=== PATIENT | male | born 1980 | race Caucasian/White ===

== ENCOUNTER 2019-12-11 14:28 | Emergency (ER) | payer OTHER, SELFPAY ==
--- NOTE | ~2019-12-11 | XR_ITS ---
EXAMINATION: XR foot RT min 3V DATE: 12/11/2019 15:12 INDICATION: Right heel pain. TECHNIQUE: 4 views of right foot were obtained. COMPARISON: None. FINDINGS: There is a comminuted, joint-depression fracture of calcaneus with extension of a fracture line to the calcaneocuboid joint. Boehler's angle is decreased. 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 There is an enthesophyte at posterior aspect of calcaneal tuberosity. IMPRESSION: 1. Comminuted, joint-depression fracture of calcaneus. Reviewed, dictated and finalized at location A. ZER
--- NOTE | ~2019-12-11 | XR_ITS ---
EXAMINATION: XR heel RT min 2V DATE: 12/11/2019 15:13 INDICATION: Right calcaneus injury. TECHNIQUE: 2 views of right calcaneus were obtained. COMPARISON: None. FINDINGS: There is a comminuted joint-depression fracture of calcaneus with decreased Boehler's angle . There is mild osteoarthritis of talonavicular joint. There is an enthesophyte at posterior aspect o f calcaneal tuberosity. IMPRESSION: 1. Comminuted, joint-depression fracture of calcaneus. Reviewed, dictated and finalized at location A. [employer]
[2019-12-11 14:45] VITALS: BP 169/85; PULSE 80; RESP 20; TEMP 36.7; O2SAT 98
--- NOTE | 2019-12-11 15:21 | ED.LOWEXIN ---
HPI - Extremity Injury (Lower) General Chief Complaint: Extremity Injury, Lower Stated Complaint: right foot injury Time Seen by Provider: 12/11/19 15:21 Source: patient, family and RN notes reviewed History of Present Illness HPI Narrative: Patient is a 39-year-old male that presents the urgent care with his father with complaints of a fall. Patient states he slipped off a ladder and fell approximately 10 to 12 feet onto his right heel. Patient states that he came straight to the facility and has not been treated for pain. Patient is slightly diaphoretic with obvious deformity to the right heel. No other acute complaints or injuries. Denies any loss of consciousness or hitting his head. Patient aware the plan of care. Related Data Home Medications Medication Instructions Recorded Confirmed No Home Medications 12/11/19 12/11/19 Allergies Allergy/AdvReac Type Severity Reaction Status Date / Time No Known Allergies Allergy Verified 12/11/19 15:28 Review of Systems Review of Systems: Narrative: CONSTITUTIONAL: Denies fever, chills, or sweats. EYES: Denies visual changes, redness, or discharge. ENT: Denies rhinorrhea, congestion, sore throat, or otalgia. CARDIOVASCULAR: Denies chest pain, palpitations, or edema. RESPIRATORY: Denies cough or dyspnea. GASTROINTESTINAL: Denies abdominal pain, nausea, vomiting, or diarrhea. GENITOURINARY: Denies dysuria or hematuria. SKIN: Denies rash or itching. MUSCULOSKELETAL: Right heel pain/swelling NEUROLOGIC: Denies headache, numbness, or weakness. All other systems reviewed are negative, except as documented in HPI. PMFSH Comments At the time of my signature, I reviewed and agree with the nursing past medical, surgical, social, and family history. There is no relevant family history pertinent to the patient complaint. Exam Narrative: Exam Narrative: GENERAL: This is a well-nourished, well-developed patient, slightly diaphoretic HEAD: normocephalic, atraumatic. EYES: PERRL. Sclera clear/white. Vision is grossly intact. EARS: External ears normal NOSE: External nose normal with no obvious nasal discharge THROAT: Mucous membranes moist NECK: Neck supple CARDIOVASCULAR: Regular rate and rhythm without murmurs, gallops, or rubs. RESPIRATORY: Clear to auscultation. Breath sounds equal bilaterally. No wheezes, rales, or rhonchi. SKIN: warm, intact with no suspicious lesions or rash, good texture and turgor. NEURO: awake, alert, and oriented to person, place and time. There were no obvious focal neurologic abnormalities. EXTREMITIES: Obvious deformity with moderate to severe right heel ecchymosis and edema, range of motion not tested due to deformity and pain, positive strong right pedal pulse with capillary refill less than 2 seconds. Course Vital Signs Vital signs: Vital Signs Temperature 98.0 F 12/11/19 14:45 Pulse Rate 80 12/11/19 14:45 Respiratory Rate 12/11/19 14:45 Blood Pressure 169/85 H 12/11/19 14:45 Pulse Oximetry 98 12/11/19 14:45 Temperature 98.0 F 12/11/19 14:45 Pulse Rate 80 12/11/19 14:45 Respiratory Rate 12/11/19 14:45 Blood Pressure 169/85 H 12/11/19 14:45 Pulse Oximetry 98 12/11/19 14:45 Reviewed?patient is informed that they may have pre-hypertension or hypertension based on a blood pressure reading in the department. I recommend the patient call the primary care provider listed on their discharge instructions or a physician of their choice this week to arrange follow-up for further evaluation of possible pre-hypertension or hypertension. Transfer Transfered to: [facility] Transportation: Other (private car) Transfer rationale: Further evaluation and management Accepting physician: Dr. Ash [facility] - Extremity Injury (Lower) MDM Narrative Medical decision making narrative: Reviewed x-ray results with the patient and father. He is aware that he has a communited, joint-depression fracture of the right calcaneu
== END 2019-12-11 15:25 | disposition short-term general hospital (02) ==
PROVIDERS: Emergency Provider Nurse Practitioner Family
DX: S92.001A Unspecified fracture of right calcaneus, initial encounter for closed fracture (principal); W11.XXXA Fall on and from ladder, initial encounter
CPT/HCPCS: 73630; 73650; 99203; G0463